=== PATIENT | female | born 1970 | race Caucasian/White ===

== ENCOUNTER 2022-01-04 16:55 | Emergency (ER) | payer MEDICAID ==
[~2022-01-04] VITALS: Ht 170.2 cm; Wt 93.0 kg
[~2022-01-04 16:55] MED LIST: LISI10TA26 PO
[2022-01-04] MEDS ORDERED: ACETAMINOPHEN 325MG TABLET PO STA (19:02)
[2022-01-04] MEDS ORDERED: IBUPROFEN 600MG TABLET PO STA (19:02)
[2022-01-04 20:38] VITALS: BP 112/65
== END 2022-01-04 20:41 | disposition home or self-care (01) ==
LOC: ER 16:55
DX: M79.18 Myalgia, other site (principal); R51.9 Headache, unspecified; Z20.822 Contact with and (suspected) exposure to COVID-19; R50.9 Fever, unspecified
CPT/HCPCS: 81025; 87426; 87804; 99283; C9803

== ENCOUNTER 2024-04-26 10:43 | Inpatient (IN) | payer MEDICAID, OTHER ==
[~2024-04-26] VITALS: Ht 170.2 cm; Wt 87.1 kg
[2024-04-26 11:13] VITALS: O2SAT 100
[2024-04-26 12:57] LABS: BASOPHILS % 0.3 % (0.0-2.0); EOSINOPHILS % 1.5 % (0.0-5.0); HEMATOCRIT. 30.7 % (36.0-48.0); LYMPHOCYTES % 15.6 % (20.0-50.0); MEAN CORPUSCULAR HEMOGLOBIN 26.1 pg (28.0-32.0); MEAN CORPUSCULAR HGB CONC 32.4 g/dL (31.0-37.0); MEAN CORPUSCULAR VOLUME 80.5 fL (81.0-99.0); MEAN PLATELET VOLUME 9.3 fl (7.4-10.4); NEUTROPHILS % 79.6 % (40.0-76.0); PLATELET 257 x1000/uL (130-400); RED BLOOD CELL COUNT 3.82 mill/uL (4.2-5.4); RED CELL DISTRIBUTION WIDTH 16.6 % (11.6-14.6); WHITE BLOOD COUNT 9.7 x1000/uL (4.5-11.0)
[2024-04-26 13:06] LABS: CHLORIDE 106 mEq/L (98-107); POTASSIUM 4.3 mEq/L (3.5-5.1); SODIUM 139 mEq/L (136-145)
[2024-04-26 13:08] LABS: CALCIUM 8.8 mg/dL (8.7-10.4); CARBON DIOXIDE 25 mEq/L (21-32)
[2024-04-26 13:13] LABS: CREATININE 0.9 mg/dL (0.6-1.0); GLUCOSE 129 mg/dL (70-105); UREA NITROGEN BLOOD 17 mg/dL (9-23)
[2024-04-26 13:14] LABS: ALANINE AMINOTRANSFERASE 15 IU/L (10-49); ASPARTATE AMINOTRANSFERASE 15 IU/L (<34)
[2024-04-26 13:15] LABS: ALBUMIN 3.8 g/dL (3.2-4.8); BILIRUBIN DIRECT 0.2 mg/dL (<=3.0); BILIRUBIN TOTAL 0.6 mg/dL (0.1-1.0); PROTEIN TOTAL 6.5 g/dL (6.0-8.3)
[2024-04-26 15:14] LABS: HCG SCREEN NEGATIVE
[2024-04-26] MEDS ORDERED: ONDANSETRON HCL 4MG/2ML INJ IV PRN (15:15)
[2024-04-26] MEDS: SODIUM CHLORIDE 0.9% 1,000 ML IV SCH (21:55)
[2024-04-26] MEDS: LISINOPRIL 10MG TABLET PO SCH (22:03)
[2024-04-26] MEDS: HEMORRHOIDAL SUPP PR SCH (22:11)
[2024-04-26] MEDS: IOHEXOL-350 100 ML BOTTLE ONE (23:44)
[2024-04-27 04:00] VITALS: BP 101/62; PULSE 86; RESP 18; TEMP 36.2; TEMP 36.3; O2SAT 98
[2024-04-27] MEDS ORDERED: AMLO5TAB88 MT (04:12)
[2024-04-27] MEDS ORDERED: METF-1149 MT (04:12)
[2024-04-27] MEDS ORDERED: *PATIENT'S OWN MEDICATION STORAGE XX SCH (05:30)
[2024-04-27 05:38] LABS: CLARITY URINE CLEAR (CLEAR); COLOR URINE YELLOW (YELLOW); GLUCOSE URINE NEGATIVE (NEGATIVE); KETONES URINE NEGATIVE (NEGATIVE); LEUKOCYTE ESTERASE URINE 1+ (NEGATIVE); NITRITE URINE NEGATIVE (NEGATIVE); OCCULT BLOOD URINE NEGATIVE (NEGATIVE); PH URINE 5.5 (4.5-8.0); PROTEIN URINE NEGATIVE (NEGATIVE); SPECIFIC GRAVITY URINE 1.013 (1.005-1.030); UROBILINOGEN URINE 0.2 E.U./dL (0.2-1.0)
[2024-04-27 06:48] LABS: SQUAMOUS EPITHELIAL CELL URINE 1+ /lpf (RARE/1+)
[2024-04-27 06:51] LABS: BACTERIA URINE NONE SEEN; RBC URINE 0-2 /hpf (0-2); WBC URINE 0-2 /hpf (0-2)
[2024-04-27 08:14] VITALS: BP 125/60; PULSE 112; RESP 18; TEMP 36.7; O2SAT 98
[2024-04-27 11:18] LABS: BASOPHILS % 0.3 % (0.0-2.0); EOSINOPHILS % 4.2 % (0.0-5.0); HEMATOCRIT. 23.9 % (36.0-48.0); HEMOGLOBIN. 7.8 g/dL (12.0-16.0); LYMPHOCYTES % 34.4 % (20.0-50.0); MEAN CORPUSCULAR HEMOGLOBIN 26.3 pg (28.0-32.0); MEAN CORPUSCULAR HGB CONC 32.5 g/dL (31.0-37.0); MEAN CORPUSCULAR VOLUME 80.9 fL (81.0-99.0); MEAN PLATELET VOLUME 8.6 fl (7.4-10.4); MONOCYTES % 3.7 % (2.0-8.0); NEUTROPHILS % 57.4 % (40.0-76.0); PLATELET 206 x1000/uL (130-400); RED BLOOD CELL COUNT 2.95 mill/uL (4.2-5.4); RED CELL DISTRIBUTION WIDTH 16.5 % (11.6-14.6); WHITE BLOOD COUNT 5.6 x1000/uL (4.5-11.0)
[2024-04-27 11:22] VITALS: BP 135/75; PULSE 101; RESP 20; TEMP 36.8; O2SAT 100
[2024-04-27 11:27] LABS: CHLORIDE 110 mEq/L (98-107); POTASSIUM 3.7 mEq/L (3.5-5.1); SODIUM 141 mEq/L (136-145)
[2024-04-27 11:28] LABS: CALCIUM 8.7 mg/dL (8.7-10.4); CARBON DIOXIDE 25 mEq/L (21-32)
[2024-04-27 11:32] LABS: IRON 42 ug/dL (50-170)
[2024-04-27 11:33] LABS: CREATININE 0.7 mg/dL (0.6-1.0); GLUCOSE 96 mg/dL (70-105); PROTHROMBIN TIME 11.4 sec (9.6-11.0); UREA NITROGEN BLOOD 16 mg/dL (9-23)
[2024-04-27 11:34] LABS: ALANINE AMINOTRANSFERASE 14 IU/L (10-49); ASPARTATE AMINOTRANSFERASE 13 IU/L (<34); PROTEIN TOTAL 5.4 g/dL (6.0-8.3)
[2024-04-27 11:35] LABS: ALBUMIN 3.5 g/dL (3.2-4.8); BILIRUBIN TOTAL 0.5 mg/dL (0.1-1.0); TOTAL IRON BINDING CAPACITY 324 ug/dl (250-425)
[2024-04-27 11:36] LABS: FERRITIN 7 ng/mL (10-291)
[2024-04-27 11:37] LABS: FOLIC ACID (FOLATE) SERUM > 20.00 ng/mL (>5.38)
[2024-04-27 11:38] LABS: VITAMIN B12 SERUM 383 pg/mL (211-911)
[2024-04-27] MEDS: ASCORBIC ACID 500 MG TABLET PO SCH (13:30)
[2024-04-27] MEDS: FERROUS SULFATE 325MG TABLET PO SCH (13:30)
[2024-04-27 15:53] VITALS: BP 124/58; PULSE 77; RESP 20; TEMP 36.8; O2SAT 98
[2024-04-27 16:47] LABS: HEMATOCRIT 25.1 % (36.0-48.0); HEMOGLOBIN 8.1 g/dL (12.0-16.0)
[2024-04-27 20:00] VITALS: BP 141/74; PULSE 98; RESP 18; TEMP 36.4; O2SAT 100
[2024-04-28] VITALS: BP 128/65; PULSE 96; RESP 18; TEMP 36.4; O2SAT 100
[2024-04-28 04:22] VITALS: BP 137/67; PULSE 87; RESP 16; TEMP 36.2; O2SAT 99
[2024-04-28 08:00] VITALS: BP 146/68; PULSE 89; RESP 18; TEMP 37; O2SAT 100
[2024-04-28 09:41] LABS: CARBON DIOXIDE 26 mEq/L (21-32); CHLORIDE 110 mEq/L (98-107); POTASSIUM 3.3 mEq/L (3.5-5.1); SODIUM 144 mEq/L (136-145)
[2024-04-28 09:42] LABS: CALCIUM 8.5 mg/dL (8.7-10.4)
[2024-04-28 09:46] LABS: BASOPHILS % 0.6 % (0.0-2.0); CREATININE 0.7 mg/dL (0.6-1.0); EOSINOPHILS % 9.2 % (0.0-5.0); HEMATOCRIT. 22.9 % (36.0-48.0); HEMOGLOBIN. 7.5 g/dL (12.0-16.0); LYMPHOCYTES % 28.4 % (20.0-50.0); MEAN PLATELET VOLUME 9.4 fl (7.4-10.4); MONOCYTES % 4.1 % (2.0-8.0); NEUTROPHILS % 57.7 % (40.0-76.0); PLATELET 188 x1000/uL (130-400); RED BLOOD CELL COUNT 2.79 mill/uL (4.2-5.4); RED CELL DISTRIBUTION WIDTH 16.9 % (11.6-14.6); WHITE BLOOD COUNT 5.3 x1000/uL (4.5-11.0)
[2024-04-28 09:47] LABS: GLUCOSE 123 mg/dL (70-105); UREA NITROGEN BLOOD 9 mg/dL (9-23)
[2024-04-28 12:00] VITALS: BP 128/57; PULSE 89; RESP 18; TEMP 36.5; O2SAT 100
[2024-04-28] MEDS: POTASSIUM CHLORIDE 20MEQ TABLET SR PO SCH (12:49)
[2024-04-28] MEDS: ACETAMINOPHEN 325MG TABLET PO PRN (12:50)
[2024-04-28 16:00] VITALS: BP 138/70; PULSE 81; RESP 18; TEMP 36.5; O2SAT 99
[2024-04-28 20:00] VITALS: BP 110/68; PULSE 91; RESP 18; TEMP 36.6; O2SAT 98
[2024-04-29] VITALS (7 sets, daily range): BP systolic 129–163; BP diastolic 62–81; PULSE 82–95; RESP 18–20; TEMP 36.2–37; O2SAT 97–100
[2024-04-29] MEDS ORDERED: BISACODYL 5MG TABLET PO NR (17:45)
[2024-04-29] MEDS ORDERED: BISACODYL 5MG TABLET PO SCH (17:45)
[2024-04-29] MEDS ORDERED: SODIUM CHLORIDE 0.9% 1,000 ML IV ONE (17:45)
[2024-04-29] MEDS: METOCLOPRAMIDE HCL 10MG/2ML VIAL IV SCH (21:50)
[2024-04-29] MEDS: SORBITOL 70% SOLN 30ML PO SCH (21:50)
[2024-04-29] MEDS: BISACODYL 5MG TABLET PO SCH ×2 (21:51→23:13)
[2024-04-30] VITALS: BP 131/78; PULSE 87; RESP 18; TEMP 36.6; O2SAT 100
[2024-04-30 04:00] VITALS: BP 131/59; PULSE 89; RESP 18; TEMP 37.1; O2SAT 100
[2024-04-30 07:07] LABS: CHLORIDE 111 mEq/L (98-107); SODIUM 144 mEq/L (136-145)
[2024-04-30 07:08] LABS: CARBON DIOXIDE 25 mEq/L (21-32)
[2024-04-30 07:11] LABS: PROTHROMBIN TIME 11.1 sec (9.6-11.0)
[2024-04-30 07:13] LABS: CREATININE 0.7 mg/dL (0.6-1.0); GLUCOSE 100 mg/dL (70-105)
[2024-04-30 07:14] LABS: UREA NITROGEN BLOOD 9 mg/dL (9-23)
[2024-04-30 07:15] LABS: ALANINE AMINOTRANSFERASE 16 IU/L (10-49); ALBUMIN 3.8 g/dL (3.2-4.8); ASPARTATE AMINOTRANSFERASE 15 IU/L (<34)
[2024-04-30 07:16] LABS: BILIRUBIN TOTAL 0.3 mg/dL (0.1-1.0)
[2024-04-30 08:00] VITALS: BP 151/74; PULSE 84; RESP 18; TEMP 37; O2SAT 99
[2024-04-30 08:11] LABS: BASOPHILS % 0.5 % (0.0-2.0); EOSINOPHILS % 7.1 % (0.0-5.0); HEMATOCRIT. 24.4 % (36.0-48.0); LYMPHOCYTES % 25.4 % (20.0-50.0); MEAN CORPUSCULAR HEMOGLOBIN 26.9 pg (28.0-32.0); MEAN CORPUSCULAR HGB CONC 32.8 g/dL (31.0-37.0); MEAN PLATELET VOLUME 8.8 fl (7.4-10.4); MONOCYTES % 4.7 % (2.0-8.0); NEUTROPHILS % 62.3 % (40.0-76.0); PLATELET 246 x1000/uL (130-400); RED BLOOD CELL COUNT 2.97 mill/uL (4.2-5.4); WHITE BLOOD COUNT 6.8 x1000/uL (4.5-11.0)
[2024-04-30 12:00] VITALS: BP_SYST 136; BP_SYST 151; BP_DIAS 71; BP_DIAS 74; PULSE 84; RESP 18; RESP 20; TEMP 36.7; TEMP 37; O2SAT 100; O2SAT 99
== END 2024-04-30 16:29 | disposition left against medical advice (07) | DRG 253 ==
LOC: ER 10:43 → 5WST 14:10 → EDBEDREQ 14:56 → 7WST 04-27 04:10
PROVIDERS: ADMIT Internal Medicine; ATTEND Internal Medicine
DX: K92.2 Gastrointestinal hemorrhage, unspecified (principal); K76.0 Fatty (change of) liver, not elsewhere classified; D50.9 Iron deficiency anemia, unspecified; E11.9 Type 2 diabetes mellitus without complications; I10 Essential (primary) hypertension; J40 Bronchitis, not specified as acute or chronic; K76.89 Other specified diseases of liver; Z53.29 Procedure and treatment not carried out because of patient's decision for other reasons; K64.4 Residual hemorrhoidal skin tags; Z90.49 Acquired absence of other specified parts of digestive tract; Z79.899 Other long term (current) drug therapy
CPT/HCPCS: 36415; 74174; 76700; 80048; 80053; 80076; 81003; 82607; 82728; 82746; 83540; 83550; 84703; 85014; 85018; 85025; 85044; 86850; 86900; 87015; 87045; 87177; 87209; 87427; 87449; 87493; 89055; 93005; 99291; J2405; J2765; Q9967